=== PATIENT | male | born 1935 | race Caucasian/White ===

== ENCOUNTER → 2016-08-13 | Outpatient (CLI) | payer OTHER ==
[~2016-08-13] MED LIST: AMLODIPINE BESY10 MG PO; ASPIRIN ADULT L81 M1 PO; ATENOLOL100 MG PO; CENTRUM SILVER PO; PRILOSEC20 MG PO; SIMVASTATIN40 MG PO; VITAMIN D-31000 UNIT PO
--- NOTE | 2016-08-13 11:52 | DIAGNOSTIC IMAGING REPORT ---
PROCEDURE: XR BARIUM SWALLOW INDICATION: DYSPHAGIA TECHNIQUE: Double contrast study. Fluoroscopy time, 2.4 minutes; 1108.80 mGy. 47 fluoroscopic images (including cine fluoroscopy of the esophagus). COMPARISON: None. FINDINGS: Pharyngoesophagus is normal. No constricting or polypoid lesions. There is a small sliding hiatal hernia with moderate to marked spontaneous gastroesophageal reflux. Thoracic esophagus is otherwise normal. IMPRESSION: 1. Normal pharyngoesophagus. 2. Small sliding hiatal hernia with moderate to marked spontaneous gastroesophageal reflux. 3. Findings discussed with the patient.
== END ==
LOC: XR SRH 10:46
DX: K21.9 Gastro-esophageal reflux disease without esophagitis (principal); K44.9 Diaphragmatic hernia without obstruction or gangrene

== ENCOUNTER 2016-08-24 09:45 | Day surgery (SDC) | payer OTHER ==
--- NOTE | 2016-08-24 14:59 | Provider's Discharge Care Plan ---
Problem, Goal, Plan Problem List 1. S/ EGD WITH SAVORY DILATION OF THE ESOPHAGUS Goals: Therapeutic intervention Instructions: Follow up as needed, Take meds as directed
--- NOTE | 2016-08-24 14:59 | Provider's Discharge Care Plan ---
Problem, Goal, Plan Problem List 1. S/ EGD WITH SAVORY DILATION OF THE ESOPHAGUS Goals: Therapeutic intervention Instructions: Follow up as needed, Take meds as directed
--- NOTE | 2016-08-24 15:22 | DIAGNOSTIC IMAGING REPORT ---
PROCEDURE: XR FLUORO ENDOSCOPE DILATION INDICATION: DYSPHAGIA TECHNIQUE: C-arm fluoroscopy provided to Dr. Camacho for therapeutic esophageal dilation Fluoroscopy time 1-[id number]-30-second 24 mGy). COMPARISON: Barium swallow 08/13/16 FINDINGS: Fluoroscopy was provided for therapeutic esophageal dilation IMPRESSION: 1. C-arm fluoroscopy for therapeutic esophageal dilation (performed by Dr. Camacho
--- NOTE | 2016-08-24 15:22 | DIAGNOSTIC IMAGING REPORT ---
PROCEDURE: XR FLUORO ENDOSCOPE DILATION INDICATION: DYSPHAGIA TECHNIQUE: C-arm fluoroscopy provided to Dr. Camacho for therapeutic esophageal dilation Fluoroscopy time 1-axodxl-93-second 24 mGy). COMPARISON: Barium swallow 08/13/16 FINDINGS: Fluoroscopy was provided for therapeutic esophageal dilation IMPRESSION: 1. C-arm fluoroscopy for therapeutic esophageal dilation (performed by Dr. Camacho
[2016-08-24 16:39] VITALS: BP 147/60
--- NOTE | 2016-08-24 21:40 | OPERATIVE REPORT ---
DATE OF SURGERY: 08/24/2016 SURGEON: Elder Camacho III, MD SENIOR ACCOUNTING CLERK: None. PREOPERATIVE DIAGNOSIS: 1. Dysphagia POSTOPERATIVE DIAGNOSIS: 1. Small hiatal hernia PROCEDURE PERFORMED: 1. Upper gastrointestinal endoscopy with fluoroscopic guidance and interpretation of Savary dilation of the esophagus ANESTHESIA: General endotracheal. COMPLICATIONS: No intraoperative or anesthetic complications. INDICATIONS: The patient is an 81-year-old male, intermittent bouts of dysphagia , feels that food gets stuck in his throat. No hematemesis, no substernal chest discomfort. Denies any weight loss. No rhythm or pattern changes of the dysphagia. No family history of esophageal or gastric cancer. Many years ago underwent upper GI endoscopy, but does not remember the results. Status post barium swallow, which shows normal pharyngeal esophagus, small sliding hiatal hernia with moderate to marked spontaneous reflux. SURGICAL FINDINGS: A normal-appearing duodenum, duodenal bulb. The gastric mucosa appeared grossly normal. The EG junction was approximately 40 cm from dental incisors. The patient was noted to have a small hiatal hernia. The esophagus otherwise appeared grossly normal. SURGICAL TECHNIQUE: The patient was brought to the operating room, placed in the dorsal supine position, where he underwent general endotracheal anesthesia by the anesthesiology department. After proper anesthesia had taken effect, an Olympus fiberoptic video flexible upper GI endoscope was passed down the patient's posterior pharynx. The esophagus intubated under direct visualization. The scope passed easily down the esophagus, through the EG junction, which was approximately 40 cm from dental incisors into gastric lumen, eventually into the second, third portion of duodenum. On withdrawing the scope, the aforementioned findings noted. The scope was withdrawn, retroflexed, good view of the cardia, fundus, and EG junction from below, as well as the greater, lesser curvature. Through the biopsy channel, a floppy tipped J-wire was passed. The scope was withdrawn, leaving the floppy tipped J-wire into stomach under fluoroscopic inspection. It was over the wire that the well-lubricated Savary dilator was passed under fluoroscopic guidance, passed the EG junction into the gastric lumen. Starting with an 11 mm Savary dilator, each dilator was passed under fluoroscopic guidance into the stomach, making sure that the marker of the Savary dilator was well past the EG junction. Each dilator was kept into position for 1 minute. The last 2 dilators were kept in position for 3 minutes. The patient was dilated up to 17 mm. We felt that we could not pass any larger dilator down because of patient's small mouth and the endotracheal tube in place. The dilator and the wire were removed as a unit, handed off the field. An Olympus fiberoptic upper GI endoscope once again is passed down the patient's posterior pharynx. The esophagus easily intubated under direct visualization. The scope passed easily down the esophagus , through the EG junction. There was no evidence of mucosal injury. The scope passed into the gastric lumen, retroflexed, good view of the cardia, fundus, and EG junction from below. Scope was then completely withdrawn. The patient tolerated procedure well and was extubated, transferred to the recovery room in stable condition. It should be noted that an ordinary EGD takes 10-15 minutes. This particular case, because of the fluoroscopic guidance and interpretation of the Savary dilator, took a total of 23 minutes.
== END 2016-08-24 16:20 | disposition home or self-care (01) ==
LOC: OR SRH 09:45 → SCU SRH 09:51 → OR SRH 12:00
PROVIDERS: Specialist
PROC: 0D748ZZ Dilation of Esophagogastric Junction, Via Natural or Artificial Opening Endoscopic (ICD-10-PCS; principal; 2016-08-24 12:00)
DX: K44.9 Diaphragmatic hernia without obstruction or gangrene (principal); R13.10 Dysphagia, unspecified; J45.909 Unspecified asthma, uncomplicated; I10 Essential (primary) hypertension
CPT/HCPCS: 29229; 29240; 50004; 60001; 70002; 80102; 83125; 83526